=== PATIENT | male | born 1935 | race Caucasian/White ===

== ENCOUNTER 2017-05-03 15:44 | Inpatient (IN) | payer MEDICARE, MEDICAID ==
[~2017-05-03] VITALS: Ht 167.6 cm; Wt 66.0 kg
[2017-05-03 17:29] LABS: HEMATOCRIT 36.7 % (39.2-51.8); HEMOGLOBIN 12.3 g/dL (13.7-18.0); WHITE BLOOD COUNT 12.4 x10^3/uL (3.4-10)
[2017-05-03 17:41] LABS: BLOOD UREA NITROGEN 22 mg/dL (7-18)
[2017-05-03] MEDS ORDERED: OMEP-110 PO (18:16)
[2017-05-03] MEDS ORDERED: HYDR25TA6 PO (18:17)
[2017-05-03] MEDS ORDERED: SITA100T PO (18:17)
[2017-05-03] MEDS ORDERED: AMLO10TA2 PO (18:17)
[2017-05-03] MEDS ORDERED: LEVO75TA5 PO (18:18)
[2017-05-03] MEDS ORDERED: PIOG45TA3 PO (18:18)
[2017-05-03] MEDS ORDERED: PRAV40TA2 PO (18:20)
[2017-05-03] MEDS ORDERED: INSU100V8 SQ (18:20)
[2017-05-03] MEDS ORDERED: SIMV40TA PO (18:22)
[2017-05-03] MEDS: SODIUM CHLORIDE FLUSH 10ML SYR IVF SCH (19:20)
[2017-05-03] MEDS ORDERED: ONDANSETRON 2MG/ML, 2ML IVPush PRN (19:30)
[2017-05-03] MEDS ORDERED: DEXTROSE 4 GM TAB.CHEW PO PRN (19:30)
[2017-05-03] MEDS ORDERED: GLUCAGON 1 MG IM PRN (19:30)
[2017-05-03] MEDS ORDERED: morphine SULFATE 10 MG/ML, 1ML IVPush PRN (19:30)
[2017-05-03] MEDS ORDERED: PLEASE ENTER ALLERGIES MC SCH ×2 (19:30)
[2017-05-03] MEDS ORDERED: DEXTROSE 50%, 50ML SYRINGE IVPush PRN (19:30)
[2017-05-03] MEDS ORDERED: FAMOTIDINE 20 MG/2 ML IVPush SCH (21:00)
[2017-05-03] MEDS: D5%-LACTATED RINGERS 1,000 ML IV SCH (22:50)
[2017-05-03] MEDS: SIMVASTATIN 40 MG TABLET PO SCH (22:50)
[2017-05-03] MEDS: INSULIN REGULAR 100 UNITS/ML, 3ML VIAL SQ-INSULIN SCH (22:59)
[2017-05-03 23:18] VITALS: BP 155/74
[2017-05-04 03:26] VITALS: BP 154/72
[2017-05-04] MEDS: D5%-LACTATED RINGERS 1,000 ML IV SCH (06:30)
[2017-05-04 07:48] VITALS: BP 163/76
[2017-05-04] MEDS: HYDROCHLOROTHIAZIDE 25 MG TABLET PO SCH (07:59)
[2017-05-04] MEDS: AMLODIPINE 5 MG TABLET PO SCH (07:59)
[2017-05-04] MEDS: LEVOTHYROXINE 75 MCG TABLET PO SCH (07:59)
[2017-05-04] MEDS: INSULIN REGULAR 100 UNITS/ML, 3ML VIAL SQ-INSULIN SCH ×4 (08:01→21:18)
[2017-05-04] MEDS: SODIUM CHLORIDE FLUSH 10ML SYR IVF SCH ×2 (08:01→19:40)
[2017-05-04] MEDS ORDERED: PROPOFOL 10 MG/ML, 20ML ONE (08:41)
[2017-05-04] MEDS ORDERED: CEFAZOLIN 1,000 MG ONE ×2 (08:41)
[2017-05-04] MEDS ORDERED: LIDOCAINE-MPF 2% ,5ML ONE (08:41)
[2017-05-04] MEDS ORDERED: DEXAMETHASONE 4 MG/ML, 1ML ONE ×2 (08:42)
[2017-05-04] MEDS ORDERED: ROCURONIUM 10 MG/ML ONE (08:42)
[2017-05-04] MEDS ORDERED: ONDANSETRON 2MG/ML, 2ML ONE (08:42)
[2017-05-04] MEDS ORDERED: SUFentanil 50 MCG/ML, 1ML ONE (08:44)
[2017-05-04] MEDS ORDERED: MIDAZOLAM 1 MG/ML, 2ML ONE (08:45)
[2017-05-04] MEDS ORDERED: PHENYLEPHRINE 10 MG/ML ONE (08:45)
[2017-05-04] MEDS ORDERED: FAMOTIDINE 20 MG/2 ML IVPush SCH (09:00)
[2017-05-04] MEDS ORDERED: GLYCOPYRROLATE 0.2MG/1ML, 5ML ONE (09:21)
[2017-05-04] MEDS ORDERED: NEOSTIGMINE 1 MG/ML, 10ML ONE (09:21)
[2017-05-04] MEDS ORDERED: FENTANYL PF 100 MCG/2ML ONE (09:43)
[2017-05-04] MEDS ORDERED: OXYcodone 5 MG/5 ML ORAL.SOL UDC ONE (09:44)
[2017-05-04] MEDS ORDERED: PROMETHAZINE 25 MG/ML, 1ML IV PRN (10:00)
[2017-05-04] MEDS ORDERED: HYDROmorphone 1 MG/ML, 1ML IV PRN (10:00)
[2017-05-04] MEDS ORDERED: hydrALAzine 20 MG/ML, 1ML IV PRN (10:00)
[2017-05-04] MEDS ORDERED: LABETALOL 5MG/ML, 20ML IV PRN (10:00)
[2017-05-04] MEDS ORDERED: ONDANSETRON 2MG/ML, 2ML IVPush PRN ×4 (10:00→22:00)
[2017-05-04] MEDS ORDERED: MEPERIDINE/PF 25MG/0.5ML IVPush PRN (10:00)
[2017-05-04] MEDS ORDERED: FENTANYL PF 100 MCG/2ML IV PRN (10:00)
[2017-05-04] MEDS ORDERED: OXYcodone 5 MG/5 ML ORAL.SOL UDC PO PRN (10:00)
[2017-05-04 10:30] VITALS: BP 176/68
[2017-05-04 15:43] VITALS: BP 151/60
[2017-05-04] MEDS ORDERED: INSULIN DETEMIR 100 UNITS/ML, PEN SQ-INSULIN SCH ×2 (16:00→21:00)
[2017-05-04] MEDS ORDERED: ACETAMINOPHEN 325 MG TABLET PO PRN ×3 (16:30→22:00)
[2017-05-04] MEDS ORDERED: ACETAMINOPHEN 500 MG TABLET PO ONE (16:30)
[2017-05-04] MEDS ORDERED: CEFAZOLIN PMX 2GM/100ML 100 ML IVPB SCH (17:00)
[2017-05-04] MEDS ORDERED: CEFAZOLIN 2,000 MG in DEXTROSE 5% 50 ML IVPB SCH (17:00)
[2017-05-04] MEDS: IBUPROFEN 200 MG TABLET PO SCH ×2 (17:04→23:09)
[2017-05-04 19:35] VITALS: BP 118/66
[2017-05-04] MEDS ORDERED: SODIUM CHLORIDE FLUSH 10ML SYR IVF SCH (21:00)
[2017-05-04] MEDS: SIMVASTATIN 40 MG TABLET PO SCH (21:19)
[2017-05-04] MEDS ORDERED: morphine SULFATE 10 MG/ML, 1ML IVPush PRN ×2 (22:00)
[2017-05-04] MEDS ORDERED: DEXTROSE 4 GM TAB.CHEW PO PRN ×2 (22:00)
[2017-05-04] MEDS ORDERED: GLUCAGON 1 MG IM PRN ×2 (22:00)
[2017-05-04] MEDS ORDERED: DEXTROSE 50%, 50ML SYRINGE IVPush PRN ×2 (22:00)
[2017-05-05 02:11] VITALS: BP 110/49
[2017-05-05] MEDS: IBUPROFEN 200 MG TABLET PO SCH ×2 (04:48→11:32)
[2017-05-05] MEDS ORDERED: FLU VACC QS2017-18 (36MOS+) UP/PF 0.5 ML IM-VACC ONE (05:30)
[2017-05-05] MEDS: LEVOTHYROXINE 75 MCG TABLET PO SCH (05:45)
[2017-05-05] MEDS: INSULIN REGULAR 100 UNITS/ML, 3ML VIAL SQ-INSULIN SCH ×2 (07:00→11:00)
[2017-05-05 08:05] VITALS: BP 127/55
[2017-05-05 08:37] VITALS: BP 111/57
[2017-05-05] MEDS: AMLODIPINE 5 MG TABLET PO SCH (08:52)
[2017-05-05] MEDS: HYDROCHLOROTHIAZIDE 25 MG TABLET PO SCH (08:52)
[2017-05-05] MEDS ORDERED: ACET325T14 PO (08:56)
[2017-05-05] MEDS ORDERED: TRAM50TA2 PO (08:56)
[2017-05-05] MEDS ORDERED: SODIUM CHLORIDE FLUSH 10ML SYR IVF SCH ×4 (09:00)
[2017-05-05] MEDS ORDERED: OMEPRAZOLE 20 MG CAPSULE.DR PO SCH ×3 (09:00)
[2017-05-05] MEDS ORDERED: MAGNESIUM CITRATE 300ML ORAL SOL PO PRN (09:00)
[2017-05-05] MEDS ORDERED: ACET500T76 PO (09:03)
[2017-05-05] MEDS ORDERED: DOCU-131 PO (09:11)
[2017-05-05] MEDS ORDERED: LEVO50TA PO (09:13)
[2017-05-06] MEDS ORDERED: LEVOTHYROXINE 50 MCG TABLET PO SCH (06:00)
== END 2017-05-05 13:15 | disposition home or self-care (01) | DRG 481 ==
LOC: ED 17:00 → EDIP 17:01 → ED 17:29 → 4NOR 19:41
PROVIDERS: ADMIT Internal Medicine; ATTEND Internal Medicine
PROC: 0QH834Z Insertion of Internal Fixation Device into Right Femoral Shaft, Percutaneous Approach (ICD-10-PCS; principal; 2017-05-04 09:00)
DX: S72.011A Unspecified intracapsular fracture of right femur, initial encounter for closed fracture (principal); E44.1 Mild protein-calorie malnutrition; E11.9 Type 2 diabetes mellitus without complications; E03.9 Hypothyroidism, unspecified; I10 Essential (primary) hypertension; Z79.82 Long term (current) use of aspirin; W18.30XA Fall on same level, unspecified, initial encounter; Y93.89 Activity, other specified; Y92.89 Other specified places as the place of occurrence of the external cause; Y99.8 Other external cause status; K21.9 Gastro-esophageal reflux disease without esophagitis; K59.00 Constipation, unspecified; S40.021A Contusion of right upper arm, initial encounter; S52.134A Nondisplaced fracture of neck of right radius, initial encounter for closed fracture; Z79.4 Long term (current) use of insulin; Z90.49 Acquired absence of other specified parts of digestive tract; Z89.021 Acquired absence of right finger(s)
CPT/HCPCS: 36415; 71010; 72190; 76000; 80048; 82040; 82962; 85025; 85610; 90686; 93005; 99285; C1713; J0690; J1100; J1815; J2250; J2405; J2704; J2710; J3490; J2370; J7121; S0028